=== PATIENT | female | born 1960 | race Caucasian/White ===

== ENCOUNTER 2023-06-03 12:48 | Outpatient (RCR) | payer MEDICARE, SELFPAY ==
--- NOTE | ~2023-06-03 | XR_ITS ---
EXAMINATION: XR FOOT, RIGHT CLINICAL INFORMATION: Nonhealing wound right foot, rule out osteomyelitis. COMPARISON: 06/21/2020 CT scan of the right ankle. TECHNIQUE: AP, lateral, and oblique views of the right foot. 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 Bones are diffusely demineralized. Severe degenerative changes in the midfoot and hindfoot. Partially imaged orthopedic hardware transfixes the distal tibia and hindfoot including partially imaged intramedullary devora and several obliquely placed screws. Moderate plantar calcaneal spur. Small dorsal calcaneal spur. XR/XR foot RT min 3V IMPRESSION: 1. 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 2. Severe degenerative changes in the midfoot and hindfoot. 3. Postsurgical changes as detailed above. 4. Correlation of images with clinical exam to evaluate for possible osteomyelitis. MRI could also be considered for further evaluation based on the clinical assessment.
== END 2023-07-15 17:00 | disposition home or self-care (01) ==
LOC: HO.WCC 12:48
PROVIDERS: PCP Internal Medicine; Visit Provider Surgery
DX: Z09 Encounter for follow-up examination after completed treatment for conditions other than malignant neoplasm (principal); E11.9 Type 2 diabetes mellitus without complications; Z89.421 Acquired absence of other right toe(s); Z79.4 Long term (current) use of insulin; Z79.899 Other long term (current) drug therapy; Z87.2 Personal history of diseases of the skin and subcutaneous tissue
CPT/HCPCS: 11042; 73630; 99212; 99213